=== PATIENT | male | born 1985 | race Caucasian/White ===

== ENCOUNTER 2016-10-05 05:20 | Emergency (ER) | payer SELFPAY ==
[2016-10-05] MEDS ORDERED: COLCHICINE 0.6 MG TABLET PO ONE ×2 (08:01→08:21)
[2016-10-05] MEDS ORDERED: PREDNISONE 20 MG TABLET PO ONE (08:01)
--- NOTE | 2016-10-05 08:36 | ER Document Report ---
ED General - General Chief Complaint: Ankle Pain Stated Complaint: LEFT ANKLE PAIN Mode of Arrival: Wheelchair Information source: Patient Notes: 31-year-old male history of gout presents with complaints of left ankle pain. Patient notes the pain started 2 days ago, denies any fevers or chills notes his had 4 episodes of gout total. Patient is not on allopurinol, has been trying to eat a gout diet TRAVEL OUTSIDE OF THE [place] IN LAST 30 DAYS: No - HPI Onset: Yesterday Onset/Duration: Persistent Quality of pain: Achy Severity: Moderate Pain Level: 2 Associated symptoms: Body/muscle aches Exacerbated by: Movement, Walking Relieved by: Denies Similar symptoms previously: Yes Recently seen / treated by doctor: Yes - Related Data Allergies/Adverse Reactions: No Known Allergies Allergy (Verified 10/05/16 05:29) Past Medical History - Social History Smoking Status: Current Every Day Smoker Cigarette use (# per day): Yes Chew tobacco use (# tins/day): No Smoking Education Provided: No Frequency of alcohol use: Regularly Drug Abuse: None Family History: Arthritis, CAD, Hyperlipidemia, Hypertension, Malignancy Renal/ Medical History: Denies: Hx Peritoneal Dialysis Musculoskeltal Medical History: Reports Hx Arthritis, Reports Hx Gout, Reports Hx Musculoskeletal Deformity, Reports Hx Musculoskeletal Trauma Traumatic Medical History: Reports: Hx Fractures - Fractured hand Past Surgical History: Reports: Hx Inguinal Hernia, Hx Orthopedic Surgery - Anterior cruciate ligament repair - Immunizations Hx Diphtheria, Pertussis, Tetanus Vaccination: Yes Review of Systems - Review of Systems Notes: REVIEW OF SYSTEMS: CONSTITUTIONAL : Denies fever, chills, or sweats. Denies recent illness. EENT: Denies eye, ear, throat, or mouth pain or symptoms. Denies nasal or sinus congestion or discharge. Denies throat, tongue, or mouth swelling or difficulty swallowing. CARDIOVASCULAR: Denies chest pain. Denies palpitations or racing or irregular heart beat. Denies ankle edema. RESPIRATORY: Denies cough, cold, or chest congestion. Denies shortness of breath, difficulty breathing, or wheezing. GASTROINTESTINAL: Denies abdominal pain or distention. Denies nausea, vomiting , or diarrhea. Denies blood in vomitus, stools, or per rectum. Denies black, tarry stools. Denies constipation. GENITOURINARY: Denies difficulty urinating, painful urination, burning, frequency, blood in urine, or discharge. MUSCULOSKELETAL left ankle pain SKIN: Denies rash, lesions or sores. HEMATOLOGIC : Denies easy bruising or bleeding. LYMPHATIC: Denies swollen, enlarged glands. NEUROLOGICAL: Denies confusion or altered mental status. Denies passing out or loss of consciousness. Denies dizziness or lightheadedness. Denies headache. Denies weakness or paralysis or loss of use of either side. Denies problems with gait or speech. Denies sensory loss, numbness, or tingling. Denies seizures. PSYCHIATRIC: Denies anxiety or stress. Denies depression, suicidal ideation, or homicidal ideation. ALL OTHER SYSTEMS REVIEWED AND NEGATIVE. Dictation was performed using [employer] voice recognition software PHYSICAL EXAMINATION: GENERAL: Well-appearing, well-nourished and in no acute distress. HEAD: Atraumatic, normocephalic. EYES: Pupils equal round extraocular movements intact, conjunctiva are normal. ENT: Nares patent NECK: Normal range of motion LUNGS: No respiratory distress Musculoskeletal: Tenderness of the left ankle no erythema no swelling NEUROLOGICAL: Normal speech, normal gait. PSYCH: Normal mood, normal affect. SKIN: Warm, Dry, normal turgor, no rashes or lesions noted. Physical Exam - Vital signs Vitals: Temp Pulse Resp BP Pulse Ox 97.7 F 92 14 143/94 H 96 10/05/16 05:26 10/05/16 05:26 10/05/16 05:26 10/05/16 05:26 10/05/16 05:26 Course - Re-evaluation Re-evalutation: 10/05/16 08:36 Patient will be treated for his gout attack, and will be started on all. Normal otherwise he is stable for discharge After performing a Medical Screening Examination, I estimate there is LOW risk for ACUTE CORONARY SYNDROME, RESPIRATORY FAILURE, SEPSIS OR MENINGITIS, thus I consider the discharge disposition reasonable. The patient and I have discussed the diagnosis and risks, and we agree with discharging home with close follow- up. We also discussed returning to the Emergency Department immediately if new or worsening symptoms occur. We have discussed the symptoms which are most concerning (e.g., changing or worsening pain, trouble swallowing or breathing, neck stiffness, fever) that necessitate immediate return. - Vital Signs Vital signs: Temp Pulse Resp BP Pulse Ox 97.7 F 92 14 143/94 H 96 10/05/16 05:26 10/05/16 05:26 10/05/16 05:26 10/05/16 05:26 10/05/16 05:26 - Diagnostic Test Radiology reviewed: Image reviewed, Reports reviewed - No acute abnormality Discharge - Discharge Clinical Impression: Gout Qualifiers: Gout site: ankle Gout etiology: unspecified cause Laterality: left Chronicity: acute Qualified Code(s): M10.9 - Gout, unspecified Left ankle pain Qualifiers: Chronicity: acute Qualified Code(s): M25.572 - Pain in left ankle and joints of left foot Condition: Stable Disposition: HOME, SELF-CARE Instructions: Gout ([facility]), Gout Diet ([facility]) Additional Instructions: Follow up with your physician tomorrow for further care or return to the ED IMMEDIATELY if symptoms worsen or new concerns occur Prescriptions: Allopurinol [Zyloprim 100 mg Tablet] 100 mg PO DAILY #30 tablet Prednisone 60 mg PO DAILY 5 Days
[2016-10-05] MEDS ORDERED: MORPHINE SULFATE 10 MG/ML INJ IM ONE (08:40)
[2016-10-05 08:46] VITALS: BP 132/77
== END 2016-10-05 09:08 | disposition home or self-care (01) ==
LOC: ER 05:20
DX: M25.572 Pain in left ankle and joints of left foot (principal); M10.9 Gout, unspecified; F17.210 Nicotine dependence, cigarettes, uncomplicated
CPT/HCPCS: 99283; 96372; 73610; J2270; J7512

== ENCOUNTER 2019-05-27 17:56 | Emergency (ER) | payer BC, MEDICAID ==
[2019-05-27 18:25] LABS: ABSOLUTE BASOPHILS # (AUTO) 0.1 10^3/uL (0.0-0.2); ABSOLUTE EOSINOPHILS # (AUTO) 0.3 10^3/uL (0.0-0.6); ABSOLUTE LYMPHOCYTES (AUTO) 4.2 10^3/uL (0.5-4.7); ABSOLUTE MONOCYTES (AUTO) 0.8 10^3/uL (0.1-1.4); ABSOLUTE NEUT (AUTO) 4.8 10^3/uL (1.7-8.2); BASOPHILS % (AUTO) 0.6 % (0-2); EOSINOPHILS % (AUTO) 2.7 % (0-6); HEMATOCRIT 42.8 % (37.9-51.0); HEMOGLOBIN 15.3 g/dL (13.5-17.0); LYMPHOCYTES % (AUTO) 41.7 % (13-45); MEAN CORPUSCULAR HEMOGLOBIN 31.7 pg (27.0-33.4); MEAN CORPUSCULAR HGB CONC 35.7 g/dL (32.0-36.0); MEAN CORPUSCULAR VOLUME 89 fl (80-97); MONOCYTES % (AUTO) 7.5 % (3-13); PLATELET COUNT 222 10^3/uL (150-450); RED BLOOD COUNT 4.83 10^6/uL (4.35-5.55); RED CELL DISTRIBUTION WIDTH 13.3 % (11.5-14.0); SEGMENTED NEUTROPHILS % (AUTO) 47.5 % (42-78); TOTAL CELLS COUNTED % (AUTO) 100 %; WHITE BLOOD COUNT 10.1 10^3/uL (4.0-10.5)
[2019-05-27] MEDS ORDERED: CLONIDINE HCL 0.1 MG TABLET PO ONE (18:34)
[2019-05-27 18:40] LABS: ALBUMIN 4.9 g/dL (3.5-5.0); ALKALINE PHOSPHATASE 83 U/L (38-126); ANION GAP 13 (5-19); ASPARTATE AMINO TRANSFERASE 51 U/L (17-59); BILIRUBIN,DIRECT 0.3 mg/dL (0.0-0.4); BILIRUBIN,TOTAL 0.8 mg/dL (0.2-1.3); BLOOD UREA NITROGEN 12 mg/dL (7-20); CALCIUM 9.7 mg/dL (8.4-10.2); CARBON DIOXIDE 25 mmol/L (22-30); CHLORIDE 101 mmol/L (98-107); GLUCOSE 95 mg/dL (75-110); POTASSIUM 3.9 mmol/L (3.6-5.0); TOTAL PROTEIN 8.4 g/dL (6.3-8.2)
--- NOTE | 2019-05-27 18:43 | ER Document Report ---
ED General - General Chief Complaint: High Blood Pressure Stated Complaint: BLOOD PRESSURE PROBLEM Time Seen by Provider: 05/27/19 18:21 TRAVEL OUTSIDE OF THE [place] IN LAST 30 DAYS: No - HPI Notes: Buddy Peña is a 34-year-old male transported here via EMS because of concerns about his blood pressure. Accompanied here by his and his brother. Patient is been told he was hypertensive by physician about a year ago and was prescribed an unknown dosage of lisinopril. He says he did not go back to the doctor is not continued to take the medicine. He felt anxious tonight and had some vague sensation of pressure in the center of his chest without radiation. This resolved by the time of arrival by EMS lasting less than 10 minutes. He was transported here noted to have persistent elevation of blood pressure. Patient has a strongly positive family history of hypertension. One uncle has had coronary disease. He is a non-smoker. He denies any recreational drug use. No known history of hyperlipidemia or thromboembolic disease. He is not diabetic. He consumes about 6 beers per day. He does maintenance work. HEART Score: HISTORY 1 ECG 0 AGE 1 RISK FACTORS 1 TROPONIN 0 TOTAL: 3 If HEART score is = 3 AND both tronponin measurments are normal, the 30 day risk of a major adverse cardiac event (all-cause mortality, myocardia infarction or need for coronary revscularization) is < 1% (Sensitivity 100%, NPV 100%). - Related Data Allergies/Adverse Reactions: No Known Allergies Allergy (Verified 10/05/16 05:29) Home Medications: lisinopril 10 mg Past Medical History - General Information source: Patient, Relative - Social History Smoking Status: Former Smoker Chew tobacco use (# tins/day): Yes - 1 can per day Frequency of alcohol use: 6 beers per day Drug Abuse: Prescription drugs Family History: Arthritis, CAD, Hyperlipidemia, Hypertension, Malignancy Patient has suicidal ideation: No Patient has homicidal ideation: No Renal/ Medical History: Denies: Hx Peritoneal Dialysis Musculoskeletal Medical History: Reports Hx Arthritis, Reports Hx Gout, Reports Hx Musculoskeletal Deformity, Reports Hx Musculoskeletal Trauma Traumatic Medical History: Reports: Hx Fractures - Fractured hand Past Surgical History: Reports: Hx Inguinal Hernia, Hx Orthopedic Surgery - Anterior cruciate ligament repair - Immunizations Hx Diphtheria, Pertussis, Tetanus Vaccination: Yes Review of Systems - Review of Systems Notes: Constitutional: Negative for fever. HENT: Negative for sore throat. Eyes: Negative for visual changes. Cardiovascular: As per HPI. Respiratory: Negative for shortness of breath. Gastrointestinal: Negative for abdominal pain, vomiting or diarrhea. Genitourinary: Negative for dysuria. Musculoskeletal: Negative for back pain. Skin: Negative for rash. Neurological: Negative for headaches, weakness or numbness. 10 point ROS negative except as marked above and in HPI. Physical Exam - Vital signs Vitals: Resp Pulse Ox 17 97 05/27/19 17:58 05/27/19 17:58 Notes: GENERAL: Well-developed well-nourished appearing in no acute distress. Blood pressure repeated by me at the bedside 170/100. SKIN: Good turgor no rashes. HEAD: Normocephalic atraumatic. EYES: PERRLA. Conjunctivae and sclerae clear. EARS: CANALS AND TMS CLEAR. NOSE: CLEAR. MOUTH: Moist mucosa. Good dentition. No stridor or edema. No drooling. NECK: Supple. No masses or thyromegaly. No adenopathy. Carotids 2+ without bruits. No JVD. BACK: Symmetrical without tenderness. CHEST: Respirations unlabored. Breath sounds clear and symmetrical. HEART: Moderate tenderness anterior chest wall midline. Regular rhythm. No murmur gallop or rub. ABDOMEN: Soft nontender without masses, organomegaly or rebound. Bowel sounds normally active. No bruits. GENITALIA: Deferred. EXTREMITIES: No edema. No calf tenderness. Cap refill less than 1.5 seconds. Dorsalis pedis and posterior tibial pulses 3+ and symmetrical. NEUROLOGICAL: GCS 15. Alert and oriented x3. Normal gait. Fluent speech. Cranial nerves II through XII intact. Sensorimotor and cerebellar normal. Normal tone. Psychiatric: Anxious. Course - Re-evaluation Re-evalutation: 05/27/19 20:23 Blood pressure is currently 150/90. Patient is asymptomatic. His cardiac enzymes chemistry profile CBC were all unremarkable. His chest x-ray was normal. His EKG did not show acute changes. His urine drug screen is positive for amphetamines and on further questioning he is been taking some of his sons "Vyvanse" which was prescribed for ADHD. Patient came out with a wide variety of reasons why you decide to do this. I told him this was a dangerous practice and discouraged him from doing this in the future. - Vital Signs Vital signs: Temp Pulse Resp BP Pulse Ox 98.5 F 9 L 144/95 H 99 05/27/19 18:01 05/27/19 19:01 05/27/19 19:01 05/27/19 19:01 - Laboratory Result Diagrams: 05/27/19 18:00 05/27/19 18:00 Laboratory results interpreted by me: 05/27/19 18:00 Total Protein 8.4 H - EKG Interpretation by Me Rate: Normal Rhythm: NSR, Other - Rate 88 Additional EKG results interpreted by me: 05/27/19 18:[address] changes. Discharge - Discharge Clinical Impression: Essential hypertension Condition: Stable Disposition: HOME, SELF-CARE Additional Instructions: Return here as needed for new or worsening symptoms. Do not take medications prescribed for other people. Restart previously prescribed blood pressure medication. Follow-up with referral physician. Prescriptions: Lisinopril [Prinivil] 10 mg PO DAILY 30 Days #30 tablet Referrals: [facility] [Provider Group] - Follow up as needed
[2019-05-27 18:51] LABS: INTERNATIONAL RATION (INR) 0.92; PROTHROMBIN TIME 12.3 SEC (11.4-15.4)
--- NOTE | 2019-05-27 19:04 | RADIOLOGY REPORT (SQ) ---
EXAM DESCRIPTION: CHEST 2 VIEWS COMPLETED DATE/TIME: 05/27/2019 6:52 pm REASON FOR STUDY: chest pain COMPARISON: None. EXAM PARAMETERS: NUMBER OF VIEWS: two views TECHNIQUE: Digital Frontal and Lateral radiographic views of the chest acquired. RADIATION DOSE: NA LIMITATIONS: none FINDINGS: LUNGS AND PLEURA: No consolidation, pneumothorax or pleural effusion. MEDIASTINUM AND HILAR STRUCTURES: No masses or contour abnormalities. HEART AND VASCULAR STRUCTURES: Heart normal size. No evidence for failure. BONES: No acute findings. HARDWARE: None in the chest. IMPRESSION: NO ACUTE RADIOGRAPHIC FINDING IN THE CHEST. TECHNICAL DOCUMENTATION: JOB ID: [id number] 2010 [employer]- All Rights Reserved Reading location - IP/workstation name: [email or web address]
[2019-05-27 19:10] LABS: URINE BARBITURATES SCREEN NEGATIVE; URINE BENZODIAZEPINES SCREEN NEGATIVE; URINE COCAINE SCREEN NEGATIVE; URINE MARIJUANA (THC) SCREEN NEGATIVE; URINE METHADONE SCREEN NEGATIVE; URINE PHENCYCLIDINE SCREEN NEGATIVE
[2019-05-27 19:13] LABS: URINE AMPHETAMINES SCREEN UNCONFIRMED POSITIVE
[2019-05-27 20:29] VITALS: BP 131/98
--- NOTE | 2019-05-27 22:13 | EKG REPORT ---
SEVERITY:- OTHERWISE NORMAL ECG - SINUS RHYTHM BORDERLINE RIGHT AXIS DEVIATION : Confirmed by: Tegan Salamanca MD 27-May-2019 22:12:35
== END 2019-05-27 20:40 | disposition home or self-care (01) ==
LOC: ER 17:56
DX: I10 Essential (primary) hypertension (principal); R07.89 Other chest pain; Z82.49 Family history of ischemic heart disease and other diseases of the circulatory system; Z72.0 Tobacco use
CPT/HCPCS: 36415; 71046; 80053; 80307; 84484; 85025; 85610; 93005; 93010; 99284

== ENCOUNTER 2019-11-18 13:48 | Emergency (ER) | payer BC, MEDICAID ==
[2019-11-18] MEDS ORDERED: DIPH/PERTUSS(ACELL)/TETANUS VAC/PF 0.5 ML SYR (>=10YO) IM ONE (13:55)
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
[2019-11-18 15:31] VITALS: BP 146/91
== END 2019-11-18 15:31 | disposition home or self-care (01) ==
LOC: ER 13:48
DX: T24.211A Burn of second degree of right thigh, initial encounter (principal); X16.XXXA Contact with hot heating appliances, radiators and pipes, initial encounter; I10 Essential (primary) hypertension; G89.29 Other chronic pain; M54.9 Dorsalgia, unspecified; M62.830 Muscle spasm of back; Z23 Encounter for immunization
CPT/HCPCS: 90715; 99283